=== PATIENT | female | born 2000 | race Caucasian/White ===

== ENCOUNTER → 2018-03-30 | Emergency (ER) | payer OTHER ==
[~2018-03-30] VITALS: Ht 157.5 cm; Wt 61.6 kg
[~2018-03-30] MED LIST: FIORICET 50-301 EACH PO; OXYCODONE HCL5 MG PO; PROTONIX40 MG PO; VICODIN 5-3001 EACH PO; ZOFRAN ODT4 MG PO; ZOFRAN4 MG PO
[2018-03-30 21:28] LABS: HEMATOCRIT 39.7 % (36.0-46.0); MCH 29.4 PG (29.0-34.0); MCHC 35.3 G/DL (30.0-36.0); MCV 83.2 FL (83-99); PLATELET COUNT 284 K/uL (156-360); RBC DIS.WIDTH-CV 12.2 % (11.8-14.6); RBC DIS.WIDTH-SD 37.5 % (39-53); RED BLOOD COUNT 4.77 M/uL (3.80-5.20); WHITE BLOOD COUNT 12.4 K/uL (4.1-10.2)
[2018-03-30 21:42] LABS: CHLORIDE 103 mEq/L (99-109); POTASSIUM 3.9 mEq/L (3.7-5.4); SODIUM 136 mEq/L (136-147)
[2018-03-30 21:44] LABS: GLUCOSE 103 mg/dL (70-99); TOTAL PROTEIN 7.8 g/dL (6.4-8.3)
[2018-03-30 21:46] LABS: TOTAL BILIRUBIN 0.7 mg/dL (0.0-1.0)
[2018-03-30 21:47] LABS: ALKALINE PHOSPHATASE 72 IU/L (3-129)
[2018-03-30 21:48] LABS: CREATININE 0.8 mg/dL (0.6-1.3); GFR ESTIMATE (CALCULATED) > 59 mL/min/
[2018-03-30 21:49] LABS: AST (GOT) 15 IU/L (2-34); UREA NITROGEN (BUN) 10 mg/dL (9-23)
[2018-03-30 21:51] LABS: ALT (GPT) 12 IU/L (3-49)
[2018-03-30 22:18] LABS: QUANTITATIVE HCG 73518.8 MIU/ML
[2018-03-30 23:13] LABS: APPEARANCE SL.HAZY ((CLEAR)); BILIRUBIN NEGATIVE; BLOOD SMALL; COLOR YELLOW ((YELLOW)); GLUCOSE (STRIP) NEGATIVE; KETONES 20; LEUKOCYTES NEGATIVE; NITRITE NEGATIVE; PROTEIN (STRIP) NEGATIVE; SPECIFIC GRAVITY 1.013 (1.000-1.030); UROBILINOGEN 0.2 MG/DL (0.2-1.0)
[2018-03-30 23:32] LABS: BACTERIA RARE /HPF; EPITHELIAL CELLS 1+ /HPF; MUCUS 1+ /LPF; RED BLOOD CELLS 0-5 /HPF (0-5); UCUL ADDED? NO; WHITE BLOOD CELLS 0-5 /HPF (0-5)
[2018-03-31 00:11] VITALS: BP 121/80
== END | disposition home or self-care (01) ==
LOC: EME 20:55
DX: O21.9 Vomiting of pregnancy, unspecified (principal); Z3A.01 Less than 8 weeks gestation of pregnancy; Z88.0 Allergy status to penicillin
CPT/HCPCS: 80053; 81003; 84702; 85027; 99281; 99283